=== PATIENT | female | born 1945 | race American Indian/Alaskan Native ===

== ENCOUNTER 2018-02-27 09:16 | Emergency (ER) | payer MEDICARE ==
[2018-02-27] MEDS ORDERED: ATROVENT IH ONE (09:30)
[2018-02-27] MEDS ORDERED: XOPENEX IH ONE (09:30)
== END 2018-02-27 09:17 | disposition left against medical advice (07) ==
LOC: ED 09:16
DX: R06.02 Shortness of breath (principal); Z53.21 Procedure and treatment not carried out due to patient leaving prior to being seen by health care provider

== ENCOUNTER 2018-03-15 04:39 | Inpatient (IN) | payer MEDICARE ==
[2018-03-15] MEDS ORDERED: CALCIUM CHLORIDE IV ONE (05:05)
[2018-03-15] MEDS ORDERED: SODIUM BICARBONATE IV ONE (05:05)
[2018-03-15] MEDS ORDERED: ADRENALIN ONE (05:05)
[2018-03-15] MEDS ORDERED: NACL 0.9% 1000 ML 1,000 ML ONE ×3 (05:20→14:56)
[2018-03-15] MEDS ORDERED: LEVOPHED DRIP 4 MG/NS 250 ML 4 MG/250 ML BAG IV ONE (05:20)
[2018-03-15] MEDS ORDERED: NACL 0.9% 1000 ML 2,000 ML IV ONE (05:25)
[2018-03-15] MEDS: LEVOPHED DRIP 4 MG/NS 250 ML 4 MG/250 ML BAG IV SCH ×2 (05:34→15:58)
[2018-03-15] MEDS ORDERED: ZOSYN/NS 4.5GM/100ML 4.5 GM/100 ML VIAL IV ONE (05:37)
[2018-03-15] MEDS ORDERED: LEVAQUIN 750MG/150ML 750 MG/150 ML BAG IV ONE (05:38)
--- NOTE | 2018-03-15 05:45 | XRay Report ---
FINAL REPORT EXAM: XR CHEST 1V AP HISTORY: ET, CVP TECHNIQUE: A portable supine view of the chest was obtained. FINDINGS: The tip of the ET tube is 3 cm above the susie. There is an NG tube in good position in the stomach. There is a right-sided transjugular venous line with the tip in the mid superior vena cava. There is no evidence of pneumothorax. The heart size is normal. The lungs appear congested. There is patchy airspace disease centrally in the right lung. Pleural fluid is not seen. The skeletal structures do not show any acute changes. IMPRESSION: Satisfactory position of the ET tube, NG tube and right-sided transjugular venous line. No pneumothorax. Pulmonary vascular congestion with extensive airspace disease centrally in the right lung.
--- NOTE | 2018-03-15 05:46 | XRay Report ---
FINAL REPORT EXAM: XR ABDOMEN 1V AP HISTORY: NG placement TECHNIQUE: A portable supine view the upper abdomen was obtained. FINDINGS: The tip of the Dobhoff tube is in good position in the antrum of the stomach. The abdominal bowel gas pattern is nondiagnostic. The skeletal structures do not show any acute changes. IMPRESSION: Tip of the Dobhoff tube in the antrum of the stomach
[2018-03-15] MEDS ORDERED: VANCOMYCIN 1,250 MG in NACL 0.9% 250ML 250 ML IV ONE (06:00)
[2018-03-15] MEDS ORDERED: NACL 0.9% 500 ML 500 ML IV ONE (06:03)
--- NOTE | 2018-03-15 06:04 | Emergency Department Report ---
ED General Adult HPI - General Chief complaint: Cardiac Arrest/CPR Stated complaint: ANGELY Time Seen by Provider: 03/15/18 06:02 Source: EMS (verbal report received from EMS.ems notes not available at time of chart dictation), RN notes reviewed, old records reviewed Mode of arrival: Stretcher Limitations: Altered Mental Status, Physical Limitation, Other - History of Present Illness Initial comments: This is a 73-year-old female whom I have evaluated in the past, recently admitted to this hospital for flash pulmonary edema. Patient is brought to the hospital by EMS for respiratory distress. Upon arrival to the ER, the patient was on positive pressure ventilation, and did not have pulses and was not breathing. EMS did not note the patient had lost pulses. It is unknown how long the patient was pulseless and apneic for. Patient received bag valve mask ventilation, and high quality chest compressions, in addition to standard ACLS interventions. Patient was pulseless for over 10-15 minutes. She was intubated without RSI medication using a bougie catheter, and a 7.5 endotracheal tube. Return of spontaneous circulation was obtained. The patient was comatose unresponsive; her blood pressure was unstable in the 60s, 70s. Patient was emergently and administratively consented by this provider for sterile right sided internal jugular central line which was placed with ultrasound guidance with 1 attempt by myself with no obvious complications. A post intubation and procedure x-ray demonstrated a massive right-sided pneumonia. The patient will be treated empirically for sepsis with healthcare associated pneumonia. Case was discussed with the critical care physician, Dr. Milligan; she agreed with placement into the intensive care unit. Patient's laboratory studies, and CT scan of the brain have not resulted, therefore she'll be signed out to the morning physician, Dr. Bradley, follow-up on the aforementioned studies, and contacted a hospitalist seen to finalize admission once her initial objective data points have returned. -: unknown Consistency: constant Improves with: none Worsens with: none Associated Symptoms: confusion, shortness of breath, weakness - Related Data Home Medications Medication Instructions Recorded Confirmed Last Taken Glimepiride [Amaryl] 4 mg PO BID 02/27/18 02/27/18 02/27/18 metFORMIN [Glucophage] 850 mg PO BID 02/27/18 02/27/18 02/27/18 Previous Rx's Medication Instructions Recorded Last Taken Type Arformoterol Nebu [Brovana Nebu] 15 mcg IH Q12HRT #30 ml 03/02/18 Unknown Rx Aspirin EC [Aspirin Enteric Coated 81 mg PO QDAY #30 tablet 03/02/18 Unknown Rx TAB] AtorvaSTATin [Lipitor] 40 mg PO QHS #30 tablet 03/02/18 Unknown Rx Azithromycin [Zithromax TAB] 250 mg PO QDAY #5 tablet 03/02/18 Unknown Rx Budesonide [Pulmicort Respules] 0.5 mg IH Q12HRT #30 nebu 03/02/18 Unknown Rx Carvedilol [Coreg] 12.5 mg PO QDAY #30 tablet 03/02/18 Unknown Rx Esomeprazole Magnesium [Nexium] 40 mg PO QDAY #30 capsule. 03/02/18 Unknown Rx Furosemide [Lasix TAB] 20 mg PO QDAY #30 tablet 03/02/18 Unknown Rx Gabapentin [Neurontin] 300 mg PO Q8HR #30 capsule 03/02/18 Unknown Rx Insulin NPH/Regular [NovoLIN 70/30] 8 unit SUB-Q BIDDIAB units 03/02/18 Unknown Rx Insulin Regular, Human [HumuLIN R] 0 units SUB-Q ACHS units 03/02/18 Unknown Rx Lisinopril [Zestril TAB] 20 mg PO QDAY #30 tablet 03/02/18 Unknown Rx Pantoprazole [Protonix TAB] 40 mg PO DAILY tablet 03/02/18 Unknown Rx Allergies Allergy/AdvReac Type Severity Reaction Status Date / Time No Known Allergies Allergy Verified 02/27/18 09:31 ED Review of Systems ROS: Stated complaint: ANGELY Other details as noted in HPI Comment: Unobtainable due to pts medical conditions ED Past Medical Hx - Past Medical History Previous Medical History?: Yes Hx Hypertension: Yes - Surgical History Past Surgical History?: No - Social History Smoking Status: Unknown if ever smoked - Medications Home Medications: Home Medications Medication Instructions Recorded Confirmed Last Taken Type Glimepiride [Amaryl] 4 mg PO BID 02/27/18 02/27/18 02/27/18 History metFORMIN [Glucophage] 850 mg PO BID 02/27/18 02/27/18 02/27/18 History Arformoterol Nebu [Brovana Nebu] 15 mcg IH Q12HRT #30 ml 03/02/18 Unknown Rx Aspirin EC [Aspirin Enteric Coated 81 mg PO QDAY #30 tablet 03/02/18 Unknown Rx TAB] AtorvaSTATin [Lipitor] 40 mg PO QHS #30 tablet 03/02/18 Unknown Rx Azithromycin [Zithromax TAB] 250 mg PO QDAY #5 tablet 03/02/18 Unknown Rx Budesonide [Pulmicort Respules] 0.5 mg IH Q12HRT #30 nebu 03/02/18 Unknown Rx Carvedilol [Coreg] 12.5 mg PO QDAY #30 tablet 03/02/18 Unknown Rx Esomeprazole Magnesium [Nexium] 40 mg PO QDAY #30 capsule. 03/02/18 Unknown Rx Furosemide [Lasix TAB] 20 mg PO QDAY #30 tablet 03/02/18 Unknown Rx Gabapentin [Neurontin] 300 mg PO Q8HR #30 capsule 03/02/18 Unknown Rx Insulin NPH/Regular [NovoLIN 70/30] 8 unit SUB-Q BIDDIAB units 03/02/18 Unknown Rx Insulin Regular, Human [HumuLIN R] 0 units SUB-Q ACHS units 03/02/18 Unknown Rx Lisinopril [Zestril TAB] 20 mg PO QDAY #30 tablet 03/02/18 Unknown Rx Pantoprazole [Protonix TAB] 40 mg PO DAILY tablet 03/02/18 Unknown Rx ED Physical Exam - General Limitations: Altered Mental Status, Physical Limitation General appearance: obtunded - Eye Eye exam: Present: normal appearance - ENT ENT exam: Present: mucous membranes dry - Neck Neck exam: Present: normal inspection - Respiratory Respiratory exam: Present: respiratory distress, rhonchi - Cardiovascular Cardiovascular Exam: Present: irregular rhythm, normal heart sounds - GI/Abdominal GI/Abdominal exam: Present: distended. Absent: tenderness, guarding, rebound, rigid, normal bowel sounds - Rectal Rectal exam: Present: normal inspection - External exam: Present: normal external exam - Extremities Exam Extremities exam: Present: normal inspection. Absent: calf tenderness - Back Exam Back exam: Absent: CVA tenderness (R) - Neurological Exam Neurological exam: Present: altered, other (nonverbal) - Psychiatric Psychiatric exam: Present: other (the patient is nonverbal) - Skin Skin exam: Present: dry ED Course Vital Signs 03/15/18 05:05 Pulse Rate 79 Respiratory 16 Rate Blood Pressure 146/70 Blood Pressure 146/70 [Left] O2 Sat by Pulse 100 Oximetry - Reevaluation(s) Reevaluation #1: 03/15/18 06:14 Differential diagnosis, including but not limited to: Pneumonia, sepsis, respiratory arrest, cardiac arrest Assessment and plan: 73-year-old female who is out of hospital respiratory and cardiac arrest now with return of spontaneous circulation. This hospital does not have hypothermia, and also given her medical comorbidities and prolonged downtime, may not be the optimal hypothermic candidate. She requires placement to the intensive care unit, and aggressive medical resuscitation. Dr. Hassan will follow-up on her diagnostics and contact the morning team to arrange admission. - Central Line Placement Right IJ Consent Obtained: emergent situation Time Out Performed: Yes Patient Placed on Monitor/Pulse Ox: Yes MD Prep: mask, gown, gloves Central Line Prep: Chlorhexidine scrub Ultrasound Used for Placement: Yes Central Line Lumen Inserted: triple Bloods Obtained for Lab: Yes Central Line Position: good blood return, all ports aspirated, flus, sutured in place with 2-0 Dressing Applied: Tegaderm Post Procedure X-Ray: tip of catheter in good p Patient Tolerated Procedure: well Complications: none - Intubation Time Out Performed: No Laryngoscope: Mei Size: 4 Assist Device Used: Bougie ET Tube Size: 7.5 Tube Secured Depth (cm): 24 Tube Secured Location: lips Tube Placement Confirmation: equal breath sounds bilat, no breath sounds over epi, confirmation by capnometr Patient Tolerated Procedure: well Intubation Complications: none ED Medical Decision Making - Lab Data Vital Signs 03/15/18 05:05 Pulse Rate 79 Respiratory 16 Rate Blood Pressure 146/70 Blood Pressure 146/70 [Left] O2 Sat by Pulse 100 Oximetry Lab Results 03/15/18 Range/Units 05:15 WBC 9.4 (4.5-11.0) K/mm3 RBC 3.29 L (3.65-5.03) M/mm3 Hgb 9.5 L (10.1-14.3) gm/dl Hct 30.0 L (30.3-42.9) % MCV 91 (79-97) fl MCH 29 (28-32) pg MCHC 32 (30-34) % RDW 13.8 (13.2-15.2) % Plt Count 178 (140-440) K/mm3 Lymph % (Auto) 38.9 H (13.4-35.0) % [place] % (Auto) 3.1 (0.0-7.3) % Eos % (Auto) 1.3 (0.0-4.3) % Baso % (Auto) 0.5 (0.0-1.8) % Lymph # 3.7 (1.2-5.4) K/mm3 [place] # 0.3 (0.0-0.8) K/mm3 Eos # 0.1 (0.0-0.4) K/mm3 Baso # 0.0 (0.0-0.1) K/mm3 Seg Neutrophils % 56.2 (40.0-70.0) % Seg Neutrophils # 5.3 (1.8-7.7) K/mm3 - EKG Data -: EKG Interpreted by Ct - EKG Data 03/15/18 06:14 Atrial fibrillation, 84 bpm, normal axis, QTC prolonged, high left ventricular voltage, poor R wave progression, abnormal EKG. - Radiology Data int Report Referring Physician: ASHER MORRISON Patient Name: JAJA GRIER Date of : 1945 Sex: Female Report Date: 2018-03-15 Report Status: [place] [address] XRay Report Signed Patient: JAJA GRIER MR#: [id number] : 1945 Acct:[id number] Age/Sex: 73 / F ADM Date: 03/15/18 Loc: ED Attending Dr: Ordering Physician: ASHER MORRISON MD Date of Service: 03/15/18 Procedure(s): XR chest 1V ap Accession Number(s): [id number] cc: ASHER MORRISON MD Fluoro Time In Minutes: FINAL REPORT EXAM: XR CHEST 1V AP HISTORY: ET, CVP TECHNIQUE: A portable supine view of the chest was obtained. FINDINGS: The tip of the ET tube is 3 cm above the susie. There is an NG tube in good position in the stomach. There is a right-sided transjugular venous line with the tip in the mid superior vena cava. There is no evidence of pneumothorax. The heart size is normal. The lungs appear congested. There is patchy airspace disease centrally in the right lung. Pleural fluid is not seen. The skeletal structures do not show any acute changes. IMPRESSION: Satisfactory position of the ET tube, NG tube and right-sided transjugular venous line. No pneumothorax. Pulmonary vascular congestion with extensive airspace disease centrally in the right lung. Transcribed By: RB Dictated By: KOKI ZIEGLER MD Electronically Authenticated By: KOKI ZIEGLER MD Signed Date/Time: 03/15/18 0541 Critical Care Time: Yes Critical care time in (mins) excluding proc time.: 45 Critical care attestation.: If time is entered above; I have spent that time in minutes in the direct care of this critically ill patient, excluding procedure time. ED Disposition Clinical Impression: Cardiac arrest Disposition: OP ADMIT IP TO THIS HOSP Is pt being admited?: Yes Condition: Critical Referrals: PRIMARY CAREMD [Primary Care Provider] - 3-5 Days
[2018-03-15 06:13] LABS: Basophils % (Auto) 0.5 % (0.0-1.8); Eosinophils # (Auto) 0.1 K/mm3 (0.0-0.4); Eosinophils % (Auto) 1.3 % (0.0-4.3); Hemoglobin 9.5 gm/dl (10.1-14.3); Lymphocytes # (Auto) 3.7 K/mm3 (1.2-5.4); Lymphocytes % (Auto) 38.9 % (13.4-35.0); Mean Corpuscular HGB Conc 32 % (30-34); Mean Corpuscular Hemoglobin 29 pg (28-32); Mean Corpuscular Volume 91 fl (79-97); Monocytes # (Auto) 0.3 K/mm3 (0.0-0.8); Monocytes % (Auto) 3.1 % (0.0-7.3); Platelet Count 178 K/mm3 (140-440); Red Blood Count 3.29 M/mm3 (3.65-5.03); Red Cell Distribution Width 13.8 % (13.2-15.2)
[2018-03-15 06:23] LABS: INR 1.29 (0.87-1.13)
[2018-03-15 06:24] LABS: Partial Thromboplastin Time 40.9 Sec. (24.2-36.6)
[2018-03-15 06:36] LABS: Albumin 2.2 g/dL (3.9-5); Calcium 8.3 mg/dL (8.4-10.2)
[2018-03-15] MEDS ORDERED: MAGNESIUM SULFATE 2GM/50ML 2 GM/50 ML BAG IV ONE ×2 (06:53→08:57)
[2018-03-15] MEDS ORDERED: fentaNYL DRIP Premix 2,000 MCG/100 ML BAG IV SCH (07:00)
[2018-03-15] MEDS ORDERED: SUBLIMAZE 2,000 MCG in NACL 0.9% 60 ML IV SCH (07:00)
--- NOTE | 2018-03-15 07:14 | Cat Scan Report ---
FINAL REPORT EXAM: CT HEAD/BRAIN WO CON HISTORY: AMS TECHNIQUE: Routine axial imaging was obtained of the brain without IV contrast. There are no previous studies available for comparison. FINDINGS: There is age related atrophy. There is no evidence of acute stroke or hemorrhage. The ventricular system is appropriate in size and is symmetric. The sinuses reveal patchy mucosal thickening in the ethmoidal and maxillary sinuses. The mastoid air cells are well pneumatized. The calvarium appears intact. IMPRESSION: Age related volume loss. No evidence of acute stroke or hemorrhage. Patchy bilateral ethmoidal and maxillary sinusitis.
[2018-03-15] MEDS ORDERED: PANCREAZE DR 10,500 UNIT FEEDTUBE PRN ×2 (07:26→11:29)
[2018-03-15] MEDS ORDERED: SIMPLE SYRUP FEEDTUBE PRN ×4 (07:26→11:29)
[2018-03-15] MEDS ORDERED: SODIUM CHLORIDE FLUSH SYRINGE 10 ML IV PRN (07:26)
[2018-03-15] MEDS ORDERED: SODIUM BICARBONATE FEEDTUBE PRN ×2 (07:26→11:29)
--- NOTE | 2018-03-15 07:31 | History and Physical Report ---
History of Present Illness Date of examination: 03/15/18 Date of admission: 03/15/2018 Chief complaint: Cardiorespiratory arrest History of present illness: This is a 73 y/o female with h/o hypertension, diabetes mellitus type 2, hyperlipidemia, CHF with diastolic dysfunction, right pulmonary nodule who was recently discharged about 2 weeks ago from the hospital after being treated for respiratory failure secondary to flash pulmonary edema likely due to diastolic heart failure and possible COPD presented today again by the EMS for worsening respiratory distress. Per the patient daughter patient had an appointment with conveyor technician yesterday and she was referred for some test for her lung nodule. At night patient developed respiratory distress and couldn't catch her breath. Family tried using nebulizer breathing treatment and her inhaler but that did not help. Patient is brought to the hospital by EMS for respiratory distress. Upon arrival to the ER, the patient was on positive pressure ventilation, and did not have pulses and was not breathing. EMS did not note the patient had lost pulses. It is unknown how long the patient was pulseless and was apneic for. ACLS was initiated in the ER and she was intubated. Patient was also placed on pressor for hypertension, but she quickly responded and pressor was discontinued. Her chest x-ray showed a right-sided dense consolidation probably aspiration pneumonia. CT head did not show any acute intracranial process. Patient currently intubated and without any sedation, but unable to provide any history. Most of the history was taken from the family members at the bedside and from the ER physician. Past medical History: h/o hypertension, diabetes mellitus type 2, hyperlipidemia , CHF with diastolic dysfunction, pulmonary nodule Past surgical History: None Social History: Lives with family, denies any smoking, drinking and elicit drug abuse. But has history of secondary smoking exposure. Family History: Significant for hypertension and diabetes Review of System: Unable to obtain as patient is intubated Medications and Allergies Allergies Allergy/AdvReac Type Severity Reaction Status Date / Time No Known Allergies Allergy Verified 02/27/18 09:31 Home Medications Medication Instructions Recorded Confirmed Last Taken Type Glimepiride [Amaryl] 4 mg PO BID 02/27/18 03/15/18 02/27/18 History metFORMIN [Glucophage] 850 mg PO BID 02/27/18 03/15/18 02/27/18 History Arformoterol Nebu [Brovana Nebu] 15 mcg IH Q12HRT #30 ml 03/02/18 03/15/18 Unknown Rx Aspirin EC [Aspirin Enteric Coated 81 mg PO QDAY #30 tablet 03/02/18 03/15/18 Unknown Rx TAB] AtorvaSTATin [Lipitor] 40 mg PO QHS #30 tablet 03/02/18 03/15/18 Unknown Rx Budesonide [Pulmicort Respules] 0.5 mg IH Q12HRT #30 nebu 03/02/18 03/15/18 Unknown Rx Carvedilol [Coreg] 12.5 mg PO QDAY #30 tablet 03/02/18 03/15/18 Unknown Rx Esomeprazole Magnesium [Nexium] 40 mg PO QDAY #30 capsule. 03/02/18 03/15/18 Unknown Rx Furosemide [Lasix TAB] 20 mg PO QDAY #30 tablet 03/02/18 03/15/18 Unknown Rx Gabapentin [Neurontin] 300 mg PO Q8HR #30 capsule 03/02/18 03/15/18 Unknown Rx Insulin NPH/Regular [NovoLIN 70/30] 8 unit SUB-Q BIDDIAB units 03/02/18 Unknown Rx Insulin Regular, Human [HumuLIN R] 0 units SUB-Q ACHS units 03/02/18 03/15/18 Unknown Rx Lisinopril [Zestril TAB] 20 mg PO QDAY #30 tablet 03/02/18 03/15/18 Unknown Rx Pantoprazole [Protonix TAB] 40 mg PO DAILY tablet 03/02/18 03/15/18 Unknown Rx Active Meds: Active Medications Albuterol/Ipratropium (Duoneb *Not For Prn Use*) 1 ampul IH Q6HRT MAIN Lipase/Protease/Amylase (Danica Soriano 10,500 Unit) 1 each FEEDTUBE PRN PRN PRN Reason: For Clogged Feeding Tube Enoxaparin Sodium (Lovenox) 40 mg SUB-Q QDAY MAIN Norepinephrine (Levophed Drip 4 Mg/Ns 250 Ml) 4 mg in 250 mls @ 7.5 mls/hr IV TITR MAIN; Protocol Last Titration: 03/15/18 06:51 Dose: 0 mcg/min, 0 mls/hr Vancomycin HCl 1,250 mg/ (Sodium Chloride) 262.5 mls @ 166.667 mls/hr IV ONCE ONE Stop: 03/15/18 07:34 Fentanyl Citrate (Fentanyl Drip Premix) 2,000 mcg in 100 mls @ 3.402 mls/hr IV TITR MANI; Protocol Dextrose/Sodium Chloride (D5ns) 1,000 mls @ 75 mls/hr IV DIRECT MAIN Morphine Sulfate (Morphine) 2 mg IV Q4H PRN PRN Reason: Pain, Moderate (4-6) Exam - Physical Exam Narrative exam: GENERAL: well-developed elderly female lying on bed appeared to be unresponsive and intubated. HEENT: Normocephalic. Atraumatic. No conjunctival congestion or icterus. Patient has dry mucous membranes. NECK: Supple. Trachea midline. ET tube in place CHEST/LUNGS: Coarse breath sound auscultated bilaterally, breathing with the event. HEART/CARDIOVASCULAR: Tachycardic. S1 and S2 positive. ABDOMEN: Abdomen is soft, nontender. Patient has normal bowel sounds. SKIN: There is no rash. Cold and dry. NEURO: Does not Follow command. MUSCULOSKELETAL: No joint effusion or tenderness. EXTRIMITY: No edema, no cyanosis or clubbing. PSYCH: Unable to assess. - Constitutional Vitals: Temp Pulse Resp BP Pulse Ox 72 16 63/37 100 03/15/18 07:12 03/15/18 05:05 03/15/18 07:12 03/15/18 07:12 Results - Labs CBC & Chem 7: 03/15/18 05:15 03/15/18 05:15 Labs: Abnormal lab results 03/15/18 03/15/18 03/15/18 Range/Units 05:15 05:15 05:15 RBC 3.29 L (3.65-5.03) M/mm3 Hgb 9.5 L (10.1-14.3) gm/dl Hct 30.0 L (30.3-42.9) % Lymph % (Auto) 38.9 H (13.4-35.0) % PT 16.8 H (12.2-14.9) Sec. INR 1.29 H (0.87-1.13) APTT 40.9 H (24.2-36.6) Sec. POC ABG pH (7.35-7.45) POC ABG pCO2 (35-45) POC ABG pO2 (80-105) Carbon Dioxide 13 L (22-30) mmol/L BUN 21 H (7-17) mg/dL Creatinine 1.3 H (0.7-1.2) mg/dL Glucose 337 H (65-100) mg/dL Lactic Acid (0.7-2.0) mmol/L Calcium 8.3 L (8.4-10.2) mg/dL Magnesium (1.7-2.3) mg/dL AST 205 H (5-40) units/L ALT 139 H (7-56) units/L NT-Pro-B Natriuret Pep (0-900) pg/mL Total Protein 3.9 L (6.3-8.2) g/dL Albumin 2.2 L (3.9-5) g/dL 03/15/18 03/15/18 03/15/18 Range/Units 05:15 05:15 06:45 RBC (3.65-5.03) M/mm3 Hgb (10.1-14.3) gm/dl Hct (30.3-42.9) % Lymph % (Auto) (13.4-35.0) % PT (12.2-14.9) Sec. INR (0.87-1.13) APTT (24.2-36.6) Sec. POC ABG pH 7.134 L (7.35-7.45) POC ABG pCO2 58.9 H (35-45) POC ABG pO2 306 H (80-105) Carbon Dioxide (22-30) mmol/L BUN (7-17) mg/dL Creatinine (0.7-1.2) mg/dL Glucose (65-100) mg/dL Lactic Acid 10.80 H* (0.7-2.0) mmol/L Calcium (8.4-10.2) mg/dL Magnesium 1.40 L (1.7-2.3) mg/dL AST (5-40) units/L ALT (7-56) units/L NT-Pro-B Natriuret Pep 1212 H (0-900) pg/mL Total Protein (6.3-8.2) g/dL Albumin (3.9-5) g/dL - Imaging and Cardiology Chest x-ray: report reviewed (large right-sided consolidation) CT scan - chest: report reviewed (age-related volume changes no acute intracranial mass, hemorrhage) Assessment and Plan Acute respiratory failure - Likely due to aspiration pneumonia and flash pulmonary edema Status post Cardiac arrest Sepsis with Rt Lung pneumonia Right-sided pneumonia - Likely aspiration cannot rule out healthcare associated or carbonated or pneumonia JANNET Hypertension, resolved HTN, uncontrolled Diabetes mellitus type 2 History of pulmonary nodule
[2018-03-15] MEDS ORDERED: NACL 0.9% 1000 ML 1,000 ML IV SCH ×2 (08:00→15:00)
[2018-03-15] MEDS ORDERED: D5NS 1,000 ML IV SCH (08:00)
[2018-03-15] MEDS ORDERED: DUONEB *Not for PRN Use IH SCH (08:00)
[2018-03-15] MEDS ORDERED: PROVENTIL IH PRN (08:08)
[2018-03-15] MEDS ORDERED: MORPHINE IV PRN (08:30)
[2018-03-15] MEDS ORDERED: ZITHROMAX 500 MG in NACL 0.9% 250ML 250 ML IV SCH (10:00)
[2018-03-15] MEDS ORDERED: LOVENOX SUB-Q SCH (10:00)
[2018-03-15] MEDS ORDERED: SODIUM CHLORIDE FLUSH SYRINGE 10 ML IV SCH (10:00)
[2018-03-15] MEDS ORDERED: cefTRIAXone 2 GM in NACL 0.9% 20 ML IV SCH (10:00)
[2018-03-15] MEDS ORDERED: DUONEB *Not for PRN Use IH ONE (10:03)
[2018-03-15] MEDS ORDERED: LOPRESSOR IV ONE (10:36)
[2018-03-15] MEDS ORDERED: LOVENOX SUB-Q ONE (10:36)
[2018-03-15] MEDS: LOPRESSOR IV SCH ×2 (10:52→13:14)
--- NOTE | 2018-03-15 11:29 | Consultation ---
History of Present Illness Consult date: 03/15/18 Reason for consult: other (Cardiopulmonary arrest, critical care, ventilator management) History of present illness: HISTORY PER ED DOCUMENTATION This is a 73 y/o female with h/o hypertension, diabetes mellitus type 2, hyperlipidemia, CHF with diastolic dysfunction, right pulmonary nodule who was recently discharged about 2 weeks ago from the hospital after being treated for respiratory failure secondary to flash pulmonary edema likely due to diastolic heart failure and possible COPD presented today again by the EMS for worsening respiratory distress. Per the patient daughter patient had an appointment with lab specialist yesterday and she was referred for some test for her lung nodule. At night patient developed respiratory distress and couldn't catch her breath. Family tried using nebulizer breathing treatment and her inhaler but that did not help. Patient is brought to the hospital by EMS for respiratory distress. Upon arrival to the ER, the patient was on positive pressure ventilation, and did not have pulses and was not breathing. EMS did not note the patient had lost pulses. It is unknown how long the patient was pulseless and was apneic for. ACLS was initiated in the ER and she was intubated. Patient was also placed on pressor for hypertension, but she quickly responded and pressor was discontinued. Her chest x-ray showed a right-sided dense consolidation probably aspiration pneumonia. CT head did not show any acute intracranial process. Patient currently intubated and without any sedation, but unable to provide any history. Most of the history was taken from the family members at the bedside and from the ER physician. Past medical History: h/o hypertension, diabetes mellitus type 2, hyperlipidemia , CHF with diastolic dysfunction, pulmonary nodule Past surgical History: None Social History: Lives with family, denies any smoking, drinking and elicit drug abuse. But has history of secondary smoking exposure. Family History: Significant for hypertension and diabetes Review of System: Unable to obtain as patient is intubated Patient was seen and examined in the ED. She is orally intubated, not on any infusions. Daughter is at the bedsdie. She states that her mother was admitted a few weeks ago with shortness of breath. She was discharged and had just been for her follow up appointments at the [facility] and lab specialist. She was scheduled for some outpatient tests. Overnight she became acutely short of breath, she did not improve with her nebulizer therapy and so 911 was activated. She denies any fevers or chills, no cough, no chest pain. Past History Past Medical History: diabetes, heart failure, hypertension, hyperlipidemia Social history: no significant social history, lives with family, full code. denies: smoking, alcohol abuse, prescription drug abuse, IV drug use Family history: diabetes, hypertension Medications and Allergies Allergies Allergy/AdvReac Type Severity Reaction Status Date / Time No Known Allergies Allergy Verified 02/27/18 09:31 Home Medications Medication Instructions Recorded Confirmed Last Taken Type Glimepiride [Amaryl] 4 mg PO BID 02/27/18 03/15/18 02/27/18 History metFORMIN [Glucophage] 850 mg PO BID 02/27/18 03/15/18 02/27/18 History Arformoterol Nebu [Brovana Nebu] 15 mcg IH Q12HRT #30 ml 03/02/18 03/15/18 Unknown Rx Aspirin EC [Aspirin Enteric Coated 81 mg PO QDAY #30 tablet 03/02/18 03/15/18 Unknown Rx TAB] AtorvaSTATin [Lipitor] 40 mg PO QHS #30 tablet 03/02/18 03/15/18 Unknown Rx Budesonide [Pulmicort Respules] 0.5 mg IH Q12HRT #30 nebu 03/02/18 03/15/18 Unknown Rx Carvedilol [Coreg] 12.5 mg PO QDAY #30 tablet 03/02/18 03/15/18 Unknown Rx Esomeprazole Magnesium [Nexium] 40 mg PO QDAY #30 capsule. 03/02/18 03/15/18 Unknown Rx Furosemide [Lasix TAB] 20 mg PO QDAY #30 tablet 03/02/18 03/15/18 Unknown Rx Gabapentin [Neurontin] 300 mg PO Q8HR #30 capsule 03/02/18 03/15/18 Unknown Rx Insulin NPH/Regular [NovoLIN 70/30] 8 unit SUB-Q BIDDIAB units 03/02/18 Unknown Rx Insulin Regular, Human [HumuLIN R] 0 units SUB-Q ACHS units 03/02/18 03/15/18 Unknown Rx Lisinopril [Zestril TAB] 20 mg PO QDAY #30 tablet 03/02/18 03/15/18 Unknown Rx Pantoprazole [Protonix TAB] 40 mg PO DAILY tablet 03/02/18 03/15/18 Unknown Rx Active Meds: Active Medications Albuterol (Proventil) 2.5 mg IH Q3HRT PRN PRN Reason: Shortness Of Breath Albuterol/Ipratropium (Duoneb *Not For Prn Use*) 1 ampul IH Q6HRT [facility] Last Admin: 03/15/18 10:11 Dose: 1 ampul Lipase/Protease/Amylase (Pancreaze Dr 10,500 Unit) 1 each FEEDTUBE PRN PRN PRN Reason: For Clogged Feeding Tube Enoxaparin Sodium (Lovenox) 40 mg SUB-Q QDAY [facility] Last Admin: 03/15/18 10:51 Dose: 40 mg Norepinephrine (Levophed Drip 4 Mg/Ns 250 Ml) 4 mg in 250 mls @ 7.5 mls/hr IV TITR MAIN; Protocol Last Titration: 03/15/18 06:51 Dose: 0 mcg/min, 0 mls/hr Fentanyl Citrate (Fentanyl Drip Premix) 2,000 mcg in 100 mls @ 3.402 mls/hr IV TITR MAIN; Protocol Sodium Chloride (Nacl 0.9% 1000 Ml) 1,000 mls @ 100 mls/hr IV DIRECT MAIN Piperacillin Sod/Tazobactam Sod (Zosyn/Ns 3.375gm/50ml) 3.375 gm in 50 mls @ 100 mls/hr IV Q8HR MAIN; Protocol Metoprolol Tartrate (Lopressor) 5 mg IV Q6HR [facility] Last Admin: 03/15/18 10:52 Dose: 5 mg Morphine Sulfate (Morphine) 2 mg IV Q4H PRN PRN Reason: Pain, Moderate (4-6) Simple Syrup (Simple Syrup) 15 ml FEEDTUBE PRN PRN PRN Reason: Hypoglycemia Simple Syrup (Simple Syrup) 30 ml FEEDTUBE PRN PRN PRN Reason: Hypoglycemia Sodium Bicarbonate (Sodium Bicarbonate) 325 mg FEEDTUBE PRN PRN PRN Reason: For Clogged Feeding Tube Sodium Chloride (Sodium Chloride Flush Syringe 10 Ml) 10 ml IV BID [facility] Last Admin: 03/15/18 10:51 Dose: 10 ml Sodium Chloride (Sodium Chloride Flush Syringe 10 Ml) 10 ml IV PRN PRN PRN Reason: LINE FLUSH Review of Systems ROS unobtainable: due to endotracheal tube, due to mental status Physical Examination Vital signs: Vital Signs Pulse Resp Pulse Ox 148 H 15 94 03/15/18 04:38 03/15/18 04:38 03/15/18 04:38 GENERAL: well-developed elderly female lying on bed appeared to be unresponsive and intubated. Orofacial seizures HEENT: Normocephalic. Atraumatic. No conjunctival congestion or icterus. Patient has dry mucous membranes. NECK: Supple. Trachea midline. ET tube in place, with some patietn ventilator dyssynchrony CHEST/LUNGS: Coarse breath sound auscultated bilaterally, breathing with the event. HEART/CARDIOVASCULAR: Tachycardic. S1 and S2 positive. ABDOMEN: Abdomen is distended, soft, nontender. Patient has normal bowel sounds. SKIN: There is no rash. Cold and dry. NEURO: Does not Follow command. MUSCULOSKELETAL: No joint effusion or tenderness. EXTRIMITY: No edema, no cyanosis or clubbing. PSYCH: Unable to assess. Results - Laboratory Findings CBC and BMP: 03/15/18 05:15 03/15/18 05:15 ABG POC ABG pH 7.134 (7.35-7.45) L 03/15/18 06:45 POC ABG pCO2 58.9 (35-45) H 03/15/18 06:45 POC ABG pO2 306 (80-105) H 03/15/18 06:45 POC ABG HCO3 19.8 03/15/18 06:45 POC ABG Total CO2 22 03/15/18 06:45 POC ABG O2 Sat 100 03/15/18 06:45 PT/INR, D-dimer PT 16.8 Sec. (12.2-14.9) H 03/15/18 05:15 INR 1.29 (0.87-1.13) H 03/15/18 05:15 Abnormal lab findings: Abnormal Labs 03/15/18 03/15/18 03/15/18 04:52 05:15 05:15 RBC 3.29 L Hgb 9.5 L Hct 30.0 L Lymph % (Auto) 38.9 H PT INR APTT POC ABG pH POC ABG pCO2 POC ABG pO2 Carbon Dioxide 13 L BUN 21 H Creatinine 1.3 H Glucose 337 H POC Glucose 308 H Lactic Acid Calcium 8.3 L Magnesium AST 205 H ALT 139 H NT-Pro-B Natriuret Pep Total Protein 3.9 L Albumin 2.2 L 03/15/18 03/15/18 03/15/18 05:15 05:15 05:15 RBC Hgb Hct Lymph % (Auto) PT 16.8 H INR 1.29 H APTT 40.9 H POC ABG pH POC ABG pCO2 POC ABG pO2 Carbon Dioxide BUN Creatinine Glucose POC Glucose Lactic Acid 10.80 H* Calcium Magnesium 1.40 L AST ALT NT-Pro-B Natriuret Pep 1212 H Total Protein Albumin 03/15/18 06:45 RBC Hgb Hct Lymph % (Auto) PT INR APTT POC ABG pH 7.134 L POC ABG pCO2 58.9 H POC ABG pO2 306 H Carbon Dioxide BUN Creatinine Glucose POC Glucose Lactic Acid Calcium Magnesium AST ALT NT-Pro-B Natriuret Pep Total Protein Albumin - Diagnostic Findings Chest x-ray: image reviewed (Right lung infiltrate) Assessment and Plan -s/p Cardiopulmonary arrest with ROSC -Acute hypoxic respiratory failure -Right lung infiltrate- probably aspiration pneumonia -h/o recurrent admissions for flash pulmonary edema -RUL lung nodule -Seizure activity post cardiopulmonary arrest -Acute renal insufficiency -Metabolic/respiratory acidosis -Severe lactic acidosis secondary to hypoperfusion -Hyperglycemic -Admit ICU -VAP bundle addressed -Antibiotics for HAP....Vancomycin and Zosyn -Obtain tracheal aspirate for cultures -Adjust minute ventilation and follow ABG -Trend lactate level -VTE and stress ulcer prophylaxis -LExt dopplers r/o DVT -CT chest to better define the left lung infiltrate - Keppra loading dose -Neurology consult -Get EEG -Follow up 2D echocardiogram results and cardiology consult report -NGT to [facility] for now -Address nutrition -Accucheck with glycemic control Discussed extensively with the patient's daughter, niece and family at the bedside. Patient is full code in the event of another cardiopulmonary arrest CC time 65 minutes Critical care time in (mins) excluding proc time.: 65 Critical care attestation.: If time is entered above; I have spent that time in minutes in the direct care of this critically ill patient, excluding procedure time.
[2018-03-15] MEDS ORDERED: ZOSYN/NS 3.375GM/50ML 3.375 GM/50 ML BAG IV SCH (12:00)
[2018-03-15] MEDS ORDERED: LOPRESSOR IV NR (12:45)
[2018-03-15] MEDS ORDERED: KEPPRA 1,000 MG/NS 0.75% 100ML 1,000 MG/100 ML BAG IV NR (12:45)
[2018-03-15] MEDS ORDERED: KEPPRA 1,000 MG/NS 0.75% 100ML 1,000 MG/100 ML BAG IV ONE (13:14)
[2018-03-15] MEDS ORDERED: TYLENOL PR ONE ×3 (13:53→14:57)
[2018-03-15] MEDS ORDERED: TYLENOL PR PRN (13:58)
--- NOTE | 2018-03-15 14:17 | Vascular Lab Report ---
LOWER EXTREMITY VENOUS DUPLEX: REASON FOR EXAM: Deep venous thrombosis. COMMENTS ON THE RIGHT: All veins visualized are freely compressible without evidence of internal echogenicity. Flow is spontaneous and phasic throughout. COMMENTS ON THE LEFT: All veins visualized are freely compressible without evidence of internal echogenicity. Flow is spontaneous and phasic throughout. IMPRESSION: No evidence of acute or chronic deep venous thrombosis in either lower extremity.
[2018-03-15] MEDS ORDERED: NACL 0.9% 1000 ML 1,000 ML IV ONE (14:23)
[2018-03-15 14:44] LABS: Albumin 3.3 g/dL (3.9-5); Calcium 8.1 mg/dL (8.4-10.2)
[2018-03-15] MEDS ORDERED: Vasostrict 20 UNIT in NACL 0.9% 100 ML IV SCH (15:00)
[2018-03-15 15:02] LABS: Mean Corpuscular HGB Conc 32 % (30-34); Mean Corpuscular Hemoglobin 28 pg (28-32); Mean Corpuscular Volume 88 fl (79-97); Platelet Count 208 K/mm3 (140-440); Red Blood Count 4.28 M/mm3 (3.65-5.03); Red Cell Distribution Width 13.9 % (13.2-15.2)
[2018-03-15 15:03] LABS: Hematocrit 37.4 % (30.3-42.9)
[2018-03-15 15:07] LABS: Chol/HDL Ratio 2.55 %
--- NOTE | 2018-03-15 15:56 | Event Note ---
Date: 03/15/18 Called by the nurse with high grade fevers not responding to anti-pyretics with hypotension not responding to vasopressors. Added vasopressin to therapy and she remains profoundly hypotensive. I suspect these are central fevers. She is currently on antibiotics.
--- NOTE | 2018-03-15 15:59 | Progress Note ---
Subjective Date of service: 03/15/18 Interval history: Central hyperthermia is characterized by a rapid onset, high temperature, marked temperature fluctuation, and higher mortality She fits the profile and will start bromocriptine. Objective Vital Signs - 12hr 03/15/18 03/15/18 03/15/18 04:38 04:46 05:00 Temperature Pulse Rate 148 H 131 H 90 Pulse Rate [ Anterior Bilateral Throughout] Respiratory 15 18 15 Rate Respiratory Rate [Anterior Bilateral Throughout] Blood Pressure 146/70 Blood Pressure [Left] O2 Sat by Pulse 94 16 L 98 Oximetry 03/15/18 03/15/18 03/15/18 05:05 05:15 05:30 Temperature 94.9 F L Pulse Rate 79 88 78 Pulse Rate [ Anterior Bilateral Throughout] Respiratory 16 18 18 Rate Respiratory Rate [Anterior Bilateral Throughout] Blood Pressure 146/70 63/37 63/28 Blood Pressure 146/70 63/37 [Left] O2 Sat by Pulse 100 99 100 Oximetry 03/15/18 03/15/18 03/15/18 05:45 06:00 06:15 Temperature Pulse Rate 84 88 90 Pulse Rate [ Anterior Bilateral Throughout] Respiratory 17 13 18 Rate Respiratory Rate [Anterior Bilateral Throughout] Blood Pressure 74/43 94/58 138/75 Blood Pressure [Left] O2 Sat by Pulse 100 100 100 Oximetry 03/15/18 03/15/18 03/15/18 06:30 06:45 07:03 Temperature Pulse Rate 92 H 94 H 98 H Pulse Rate [ Anterior Bilateral Throughout] Respiratory 18 19 18 Rate Respiratory Rate [Anterior Bilateral Throughout] Blood Pressure 148/91 163/101 178/102 Blood Pressure [Left] O2 Sat by Pulse 100 100 100 Oximetry 03/15/18 03/15/18 03/15/18 07:12 07:15 07:30 Temperature Pulse Rate 72 100 H 106 H Pulse Rate [ Anterior Bilateral Throughout] Respiratory 21 10 L Rate Respiratory Rate [Anterior Bilateral Throughout] Blood Pressure 63/37 186/107 192/104 Blood Pressure [Left] O2 Sat by Pulse 100 100 100 Oximetry 03/15/18 03/15/18 03/15/18 07:45 08:00 08:10 Temperature Pulse Rate 107 H 106 H 109 H Pulse Rate [ Anterior Bilateral Throughout] Respiratory 11 L 14 Rate Respiratory Rate [Anterior Bilateral Throughout] Blood Pressure 190/118 196/110 191/109 Blood Pressure [Left] O2 Sat by Pulse 100 99 Oximetry 03/15/18 03/15/18 03/15/18 08:30 08:45 09:00 Temperature Pulse Rate 111 H 113 H 113 H Pulse Rate [ Anterior Bilateral Throughout] Respiratory 22 16 13 Rate Respiratory Rate [Anterior Bilateral Throughout] Blood Pressure 188/111 194/113 195/114 Blood Pressure [Left] O2 Sat by Pulse 100 99 100 Oximetry 03/15/18 03/15/18 03/15/18 09:15 09:30 09:45 Temperature 98.9 F Pulse Rate 106 H 105 H 109 H Pulse Rate [ Anterior Bilateral Throughout] Respiratory 13 12 10 L Rate Respiratory Rate [Anterior Bilateral Throughout] Blood Pressure 178/130 178/130 188/99 Blood Pressure [Left] O2 Sat by Pulse 99 99 Oximetry 03/15/18 03/15/18 03/15/18 10:00 10:10 10:15 Temperature Pulse Rate 111 H 114 H Pulse Rate [ 108 H Anterior Bilateral Throughout] Respiratory 11 L 13 Rate Respiratory 20 Rate [Anterior Bilateral Throughout] Blood Pressure 191/108 193/113 Blood Pressure [Left] O2 Sat by Pulse Oximetry 03/15/18 03/15/18 03/15/18 10:23 10:30 10:45 Temperature Pulse Rate 116 H 105 H Pulse Rate [ Anterior Bilateral Throughout] Respiratory 11 L 11 L 12 Rate Respiratory Rate [Anterior Bilateral Throughout] Blood Pressure 185/115 167/100 Blood Pressure [Left] O2 Sat by Pulse 100 Oximetry 03/15/18 03/15/18 03/15/18 10:52 11:00 11:15 Temperature Pulse Rate 115 H 107 H 106 H Pulse Rate [ Anterior Bilateral Throughout] Respiratory 14 14 Rate Respiratory Rate [Anterior Bilateral Throughout] Blood Pressure 185/115 170/98 164/97 Blood Pressure [Left] O2 Sat by Pulse Oximetry 03/15/18 03/15/18 03/15/18 11:30 11:45 12:00 Temperature Pulse Rate 113 H 114 H 117 H Pulse Rate [ Anterior Bilateral Throughout] Respiratory 15 16 17 Rate Respiratory Rate [Anterior Bilateral Throughout] Blood Pressure 171/103 176/99 181/97 Blood Pressure [Left] O2 Sat by Pulse Oximetry 03/15/18 03/15/18 03/15/18 12:15 12:30 12:36 Temperature Pulse Rate 117 H 120 H 116 H Pulse Rate [ Anterior Bilateral Throughout] Respiratory 17 18 17 Rate Respiratory Rate [Anterior Bilateral Throughout] Blood Pressure 173/102 173/102 173/102 Blood Pressure [Left] O2 Sat by Pulse Oximetry 03/15/18 03/15/18 03/15/18 12:40 12:42 12:45 Temperature Pulse Rate 118 H 118 H Pulse Rate [ Anterior Bilateral Throughout] Respiratory 19 19 Rate Respiratory Rate [Anterior Bilateral Throughout] Blood Pressure 173/102 158/93 Blood Pressure [Left] O2 Sat by Pulse 100 100 100 Oximetry 03/15/18 03/15/18 03/15/18 12:50 12:56 13:00 Temperature Pulse Rate 118 H 120 H 119 H Pulse Rate [ Anterior Bilateral Throughout] Respiratory 18 20 19 Rate Respiratory Rate [Anterior Bilateral Throughout] Blood Pressure 158/93 158/93 158/93 Blood Pressure [Left] O2 Sat by Pulse 100 100 100 Oximetry 03/15/18 03/15/18 03/15/18 13:06 13:10 13:16 Temperature Pulse Rate 118 H 119 H 120 H Pulse Rate [ Anterior Bilateral Throughout] Respiratory 16 20 19 Rate Respiratory Rate [Anterior Bilateral Throughout] Blood Pressure 158/93 158/93 158/93 Blood Pressure [Left] O2 Sat by Pulse 100 100 53 L Oximetry 03/15/18 03/15/18 03/15/18 13:20 13:25 13:30 Temperature Pulse Rate 118 H 119 H 118 H Pulse Rate [ Anterior Bilateral Throughout] Respiratory 20 19 20 Rate Respiratory Rate [Anterior Bilateral Throughout] Blood Pressure 70/46 80/42 80/42 Blood Pressure [Left] O2 Sat by Pulse 99 98 100 Oximetry 03/15/18 03/15/18 03/15/18 13:35 13:40 13:45 Temperature Pulse Rate 120 H 120 H 123 H Pulse Rate [ Anterior Bilateral Throughout] Respiratory 20 19 20 Rate Respiratory Rate [Anterior Bilateral Throughout] Blood Pressure 66/40 63/37 63/39 Blood Pressure [Left] O2 Sat by Pulse 98 99 99 Oximetry 03/15/18 03/15/18 03/15/18 13:50 13:52 13:55 Temperature 105.9 F H Pulse Rate 126 H 131 H Pulse Rate [ Anterior Bilateral Throughout] Respiratory 20 19 Rate Respiratory Rate [Anterior Bilateral Throughout] Blood Pressure 78/34 70/35 Blood Pressure [Left] O2 Sat by Pulse 99 100 Oximetry 06/13/18 06/13/18 06/13/18 14:00 14:05 14:10 Temperature Pulse Rate 131 H 132 H 137 H Pulse Rate [ Anterior Bilateral Throughout] Respiratory 19 21 22 Rate Respiratory Rate [Anterior Bilateral Throughout] Blood Pressure 70/35 61/35 80/41 Blood Pressure [Left] O2 Sat by Pulse 100 93 96 Oximetry 03/15/18 03/15/18 03/15/18 14:12 14:15 14:20 Temperature Pulse Rate 137 H 140 H 140 H Pulse Rate [ Anterior Bilateral Throughout] Respiratory 21 20 Rate Respiratory Rate [Anterior Bilateral Throughout] Blood Pressure 80/41 87/48 89/49 Blood Pressure [Left] O2 Sat by Pulse 97 100 100 Oximetry 03/15/18 03/15/18 03/15/18 14:25 14:30 14:35 Temperature Pulse Rate 140 H 142 H 142 H Pulse Rate [ Anterior Bilateral Throughout] Respiratory 20 22 21 Rate Respiratory Rate [Anterior Bilateral Throughout] Blood Pressure 87/51 97/47 88/48 Blood Pressure [Left] O2 Sat by Pulse 99 100 100 Oximetry 03/15/18 03/15/18 03/15/18 14:40 14:45 14:50 Temperature Pulse Rate 142 H 140 H 141 H Pulse Rate [ Anterior Bilateral Throughout] Respiratory 18 19 22 Rate Respiratory Rate [Anterior Bilateral Throughout] Blood Pressure 94/50 84/43 81/40 Blood Pressure [Left] O2 Sat by Pulse 100 99 100 Oximetry 03/15/18 03/15/18 03/15/18 14:55 15:00 15:05 Temperature Pulse Rate 141 H 141 H 142 H Pulse Rate [ Anterior Bilateral Throughout] Respiratory 19 22 21 Rate Respiratory Rate [Anterior Bilateral Throughout] Blood Pressure 76/32 66/38 68/35 Blood Pressure [Left] O2 Sat by Pulse 99 99 99 Oximetry 03/15/18 03/15/18 03/15/18 15:10 15:15 15:20 Temperature Pulse Rate 140 H 141 H 142 H Pulse Rate [ Anterior Bilateral Throughout] Respiratory 22 22 22 Rate Respiratory Rate [Anterior Bilateral Throughout] Blood Pressure 64/35 70/34 68/35 Blood Pressure [Left] O2 Sat by Pulse 98 98 97 Oximetry 03/15/18 03/15/18 03/15/18 15:25 15:30 15:37 Temperature 107.1 F H Pulse Rate 142 H 145 H Pulse Rate [ Anterior Bilateral Throughout] Respiratory 22 21 Rate Respiratory Rate [Anterior Bilateral Throughout] Blood Pressure 68/35 78/41 Blood Pressure [Left] O2 Sat by Pulse 97 96 Oximetry CBC and BMP: 03/15/18 14:55 03/15/18 14:04 ABG, PT/INR, D-dimer: ABG POC ABG pH 7.134 (7.35-7.45) L 03/15/18 06:45 POC ABG pCO2 58.9 (35-45) H 03/15/18 06:45 POC ABG pO2 306 (80-105) H 03/15/18 06:45 POC ABG HCO3 19.8 03/15/18 06:45 POC ABG Total CO2 22 03/15/18 06:45 POC ABG O2 Sat 100 03/15/18 06:45 PT/INR, D-dimer PT 16.8 Sec. (12.2-14.9) H 03/15/18 05:15 INR 1.29 (0.87-1.13) H 03/15/18 05:15 Abnormal lab findings: Abnormal Labs 03/15/18 03/15/18 03/15/18 04:52 05:15 05:15 WBC RBC 3.29 L Hgb 9.5 L Hct 30.0 L Lymph % (Auto) 38.9 H PT INR APTT POC ABG pH POC ABG pCO2 POC ABG pO2 Carbon Dioxide 13 L BUN 21 H Creatinine 1.3 H Glucose 337 H POC Glucose 308 H Lactic Acid Calcium 8.3 L Magnesium AST 205 H ALT 139 H Alkaline Phosphatase Troponin T NT-Pro-B Natriuret Pep Total Protein 3.9 L Albumin 2.2 L 03/15/18 03/15/18 03/15/18 05:15 05:15 05:15 WBC RBC Hgb Hct Lymph % (Auto) PT 16.8 H INR 1.29 H APTT 40.9 H POC ABG pH POC ABG pCO2 POC ABG pO2 Carbon Dioxide BUN Creatinine Glucose POC Glucose Lactic Acid 10.80 H* Calcium Magnesium 1.40 L AST ALT Alkaline Phosphatase Troponin T NT-Pro-B Natriuret Pep 1212 H Total Protein Albumin 03/15/18 03/15/18 03/15/18 06:45 11:58 14:04 WBC RBC Hgb Hct Lymph % (Auto) PT INR APTT POC ABG pH 7.134 L POC ABG pCO2 58.9 H POC ABG pO2 306 H Carbon Dioxide BUN Creatinine Glucose POC Glucose 301 H Lactic Acid Calcium Magnesium AST ALT Alkaline Phosphatase Troponin T 0.291 H* D NT-Pro-B Natriuret Pep Total Protein Albumin 03/15/18 03/15/18 03/15/18 14:04 14:04 14:53 WBC RBC Hgb Hct Lymph % (Auto) PT INR APTT POC ABG pH POC ABG pCO2 POC ABG pO2 Carbon Dioxide 19 L BUN 35 H Creatinine 2.0 H D Glucose 302 H POC Glucose Lactic Acid 3.70 H* 3.00 H* Calcium 8.1 L Magnesium AST 302 H ALT 213 H Alkaline Phosphatase 155 H Troponin T NT-Pro-B Natriuret Pep Total Protein 5.6 L D Albumin 3.3 L 03/15/18 14:55 WBC 16.9 H RBC Hgb Hct Lymph % (Auto) PT INR APTT POC ABG pH POC ABG pCO2 POC ABG pO2 Carbon Dioxide BUN Creatinine Glucose POC Glucose Lactic Acid Calcium Magnesium AST ALT Alkaline Phosphatase Troponin T NT-Pro-B Natriuret Pep Total Protein Albumin
[2018-03-15] MEDS ORDERED: PARLODEL PO SCH (16:00)
[2018-03-15] MEDS ORDERED: LACTATED RINGERS 1,000 ML IV ONE (16:00)
[2018-03-15] MEDS ORDERED: NEO-SYNEPHRINE 100 MG in NACL 0.9% 90 ML IV SCH (16:00)
[2018-03-15 16:04] LABS: Band Neutrophils # (Manual) 0.5 K/mm3; Basophils % (Manual) 0 % (0.0-1.8); Eosinophils % (Manual) 0 % (0.0-4.3); Myelocytes # (Manual) 0.2 K/mm3; Platelet Estimate Consistent w Auto; Target Cells Rare; Total Cells Counted 100
--- NOTE | 2018-03-15 17:00 | Event Note ---
Date: 03/15/18
--- NOTE | 2018-03-15 17:00 | Death Summary ---
Summary - Providers Date of service: 03/15/18 Consults: 03/15/18 06:03 Consult to Physician [CONS] Urgent Comment: DR SAMUEL NOTIFIED [id number] Consulting Provider: SIA SAMUEL Physician Instructions: Reason For Exam: resp arrest 03/15/18 07:26 Consult to Dietitian/Nutrition [CONS] Routine Physician Instructions: Reason For Exam: Reason for Consult: Write/Manage Tube Feeding 03/15/18 07:28 Consult to Dietitian/Nutrition [CONS] Routine Physician Instructions: Assess nutrtn needs, initiate, modify, manage TF Reason For Exam: Reason for Consult: Write/Manage Tube Feeding Reason for Consult: Write/Manage Tube Feeding 03/15/18 14:45 Consult to Physician [CONS] Routine Comment: OFFICE NOTIFIED [id number] Consulting Provider: JAYSHREE GARCIA Physician Instructions: Reason For Exam: cardiac arrest Consult to Physician [CONS] Routine Comment: ext [id number] notified Consulting Provider: HOLGER OROZCO Physician Instructions: Reason For Exam: anoxic encephalopathy Attending: DAMIAN LIMA - summary Date of admission: 03/15/18 07:26
[2018-03-15 17:12] VITALS: BP 46/21
== END 2018-03-15 21:40 | DRG 871 ==
LOC: ED 04:39 → CC1 07:26
PROVIDERS: ADMIT Internal Medicine; ATTEND Internal Medicine
PROC: 0BH17EZ Insertion of Endotracheal Airway into Trachea, Via Natural or Artificial Opening (ICD-10-PCS; principal; 2018-03-15)
PROC: 5A1935Z Respiratory Ventilation, Less than 24 Consecutive Hours (ICD-10-PCS; 2018-03-15)
PROC: 4A033R1 Measurement of Arterial Saturation, Peripheral, Percutaneous Approach (ICD-10-PCS; 2018-03-15)
PROC: 05HM33Z Insertion of Infusion Device into Right Internal Jugular Vein, Percutaneous Approach (ICD-10-PCS; 2018-03-15)
DX: A41.9 Sepsis, unspecified organism (principal); J69.0 Pneumonitis due to inhalation of food and vomit; J96.01 Acute respiratory failure with hypoxia; I50.32 Chronic diastolic (congestive) heart failure; N17.9 Acute kidney failure, unspecified; E87.2 Acidosis; I46.9 Cardiac arrest, cause unspecified; I11.0 Hypertensive heart disease with heart failure; E78.5 Hyperlipidemia, unspecified; Z77.22 Contact with and (suspected) exposure to environmental tobacco smoke (acute) (chronic); Z83.3 Family history of diabetes mellitus; Z82.49 Family history of ischemic heart disease and other diseases of the circulatory system; E11.65 Type 2 diabetes mellitus with hyperglycemia; R56.9 Unspecified convulsions; R91.1 Solitary pulmonary nodule; Z79.82 Long term (current) use of aspirin; Z79.4 Long term (current) use of insulin; Z79.899 Other long term (current) drug therapy
CPT/HCPCS: 36415; 70450; 71045; 74018; 80053; 80061; 82140; 82550; 82803; 82962; 83735; 83880; 84484; 85007; 85025; 85610; 85730; 86850; 86900; 86901; 87040; 87045; 93005; 93010; 93306; 93970; 94002; 94640; 96361; J0171; J0456; J0696; J1650; J1953; J1956; J2370; J2543; J3370; J3475; J7030; J7050; J7120